=== PATIENT | male | born 1960 | race Caucasian/White ===

== ENCOUNTER 2018-08-01 20:19 | Emergency (ER) | payer MEDICAID, OTHER ==
[~2018-08-01] VITALS: Ht 172.7 cm; Wt 70.8 kg
[2018-08-01 20:27] VITALS: Ht 172.7 cm; Wt 70.8 kg
--- NOTE | 2018-08-01 21:34 | ERD ---
ER Documentation Chief Complaint Chief Complaint REFFERED BY PCP FOR HTN HPI The patient is a 58-year-old male, presenting to the ER because of intermittent right-sided numbness to the half days ago, went to see his doctor today who sent him to the emergency department for further evaluation. He denies any headache, ectopy, near syncope, neck pain, chest pain, dyspnea, abdominal pain, vomiting, dysuria, diarrhea. He does not smoke nor drink Past medical history: None Past surgical history: None ROS All systems reviewed and are negative except as per history of present illness. Medications Home Meds Active Scripts Amlodipine Besylate* (Norvasc*) 2.5 Mg Tablet, 2.5 MG PO DAILY for 14 Days, TAB Prov:DYLON VILLATORO MD 08/01/18 Allergies Allergies: Coded Allergies: Acetaminophen (Verified Allergy, Unknown, 03/17/11) PMhx/Soc History of Surgery: No Hx Cardiac Disorders: Yes (HTN) Hx Psychiatric Problems: Yes (DEPRESSION) Hx Alcohol Use: No Hx Substance Use: No Hx Tobacco Use: No Smoking Status: Never smoker Physical Exam Vitals Vital Signs Date Temp Pulse Resp B/P (MAP) Pulse Ox O2 O2 Flow FiO2 Time Delivery Rate 08/01/18 63 16 153/96 100 Room Air 23:14 (115) 08/01/18 98.2 78 19 191/100 98 20:27 (130) Physical Exam Const: No acute distress. Head: Atraumatic. Eyes: Normal Conjunctiva. ENT: Normal External Ears, Nose and Mouth. Neck: Full range of motion. No meningismus. Resp: Clear to auscultation bilaterally. Cardio: Regular rate and rhythm. Abd: Soft, non distended, normal bowel sounds, non tender. Skin: No petechiae or rashes. Back: No midline or flank tenderness. Ext: No cyanosis, or edema. Neur: Awake and alert. No focal deficit Psych: Normal Mood and Affect. Result Diagram: 08/01/18221208/01/182212 Results 24 hrs Laboratory Tests Test 08/01/18 22:13 White Blood Count 7.8 10^3/ul Red Blood Count 4.78 10^6/ul Hemoglobin 14.0 g/dl Hematocrit 40.8 % Mean Corpuscular Volume 85.4 fl Mean Corpuscular Hemoglobin 29.3 pg Mean Corpuscular Hemoglobin Concent 34.3 g/dl Red Cell Distribution Width 12.3 % Platelet Count 189 10^3/UL Mean Platelet Volume 10.1 fl Immature Granulocytes % 0.300 % Neutrophils % 50.6 % Lymphocytes % 37.0 % Monocytes % 6.7 % Eosinophils % 4.9 % Basophils % 0.5 % Nucleated Red Blood Cells % 0.0 /100WBC Immature Granulocytes # 0.020 10^3/ul Neutrophils # 4.0 10^3/ul Lymphocytes # 2.9 10^3/ul Monocytes # 0.5 10^3/ul Eosinophils # 0.4 10^3/ul Basophils # 0.0 10^3/ul Nucleated Red Blood Cells # 0.0 10^3/ul Sodium Level 140 mmol/L Potassium Level 3.5 mmol/L Chloride Level 105 mmol/L Carbon Dioxide Level 26 mmol/L Anion Gap 9 Blood Urea Nitrogen 15 mg/dl Creatinine 0.90 mg/dl Est Glomerular Filtrat Rate mL/min > 60 mL/min Glucose Level 112 mg/dl Calcium Level 8.8 mg/dl [facility]/[place] [id number] Radiology Main Line: [phone] DIAGNOSTIC IMAGING REPORT Patient: ANGELA BRUNO : 1960 Age: 58 Sex: M [id number] DOS: 08/01/18 2154 Ordering MD: DYLON VILLATORO MD Location: E/R Room/Bed: PROCEDURE: CT Brain without contrast. CLINICAL INDICATION: Headache. TECHNIQUE: A CT of the brain was performed utilizing axial imaging from the skull base through the vertex without IV contrast. Multiplanar reformatted images were made. Images were reviewed on a PACS workstation. The CTDIvol is 38.72 mGy and the DLP is 699.25 mGycm. DICOM images are available. One or more of the following dose reduction techniques were utilized: 1.) Automated exposure control 2.) Adjustment of the mA +/- kV according to patient's size 3.) Use of iterative reconstruction technique. COMPARISON: None FINDINGS: There is no intracranial hemorrhage, mass effect, or midline shift. No extra- axial fluid collection is seen. The ventricles and sulci are normal in size and configuration. The density of the brain is normal, and the betancourt white matter differentiation appears well-preserved. The visualized paranasal sinuses and osseous structures are grossly unremarkable. IMPRESSION: 1. No evidence of acute intracranial pathology. 2. The brain is normal in appearance. RPTAT: [facility] Physician Barbara Date Time Electronically viewed and signed by Alexy Gibson Physician on 08/01/2018 22:53 RS/ CC: DYLON VILLATORO MD [phone] EKG: Read by emergency physician Rate/Rhythm: Normal Sinus Rhythm 73 beats/min QRS, ST, T-waves: No ST elevation, no T inversion, anteroseptal Q's Impression: Abnormal EKG MEDICAL MAKING DECISION: Patient is a 58-year-old male, presenting with onset hypertension, is stable for outpatient follow-up The differential diagnoses considered include but are not limited to subarachnoid hemorrhage, occult trauma, CVA, meningitis, encephalitis, hypertension, tension, migraine, cluster, narcotic withdrawal, cervical spine disease. Departure Diagnosis: Primary Impression: Hypertension Condition: Good Comments He was discharged with Norvasc 5 mg daily I discussed the findings with the patient. I advised the patient to follow-up with the primary physician in about 2-3 days, sooner if needed and return if any concern, advised to f/u with pcp for further eval and referal to cardiology for abnormal ecg Disclaimer: Inadvertent spelling and grammatical errors are likely due to EHR/d ictation software use and do not reflect on the overall quality of patient care. Also, please note that the electronic time recorded on this note does not necessarily reflect the actual time of the patient encounter. DYLON VILLATORO MD August 01, 2018 21:34
[2018-08-01 23:14] VITALS: BP 153/96; PULSE 63; RESP 16
[2018-08-01] MEDS ORDERED: AMLO2.5T2 PO (23:15)
== END 2018-08-01 23:28 | disposition home or self-care (01) ==
LOC: E/R 20:19
DX: I10 Essential (primary) hypertension (principal); R40.2142 Coma scale, eyes open, spontaneous, at arrival to emergency department; R40.2362 Coma scale, best motor response, obeys commands, at arrival to emergency department; R40.2252 Coma scale, best verbal response, oriented, at arrival to emergency department
CPT/HCPCS: 36415; 70450; 80048; 85025; 93005; Z7502